=== PATIENT | male | born 1980 | race Caucasian/White ===

== ENCOUNTER → 2017-03-06 | Outpatient (CLI) | payer BC ==
[~2017-03-06] MED LIST: CETI10TA20 PO
[2017-03-06 16:05] VITALS: BP 141/89
--- NOTE | 2017-03-06 16:05 | Urgent Care T Sheet Gen (E) ---
Intake General Temperature (Fahrenheit): 98.5 Pulse: 83 Blood Pressure Systolic: 141 Blood Pressure Diastolic: 89 Respirations: 22 SPO2: 98 Description of Symptoms Patient presents with complaining of feeling "off" since 1:30 this afternoon. Patient was at work where he felt sluggish and noticed chest tightness. No head throbbing or visual changes. Checked his BP at work and it was 156/106 which prompted him to call his . No meds. No history of HTN. Respiratory Constitutional Symptoms: Other (feels "off" ) EENTM: No symptoms reported Respiratory: No symptoms reported Cardiovascular: Chest pain (tightness) All Other Systems Reviewed Remaining Systems: All other systems reviewed with negative findings Physical Exam Physical Exam General Appearance: WD/WN Mild distress Respiratory Exam: Lungs clear Normal breath sounds Cardiovascular Exam: Regular rate, rhythm No murmur Departure Urgent Care Impression Impression: Primary Impression: Chest tightness Departure Departed Disposition: To [facility] ED Condition: Stable Referrals: KAITLIN DELATORRE MD (PCP) Additional Instructions: I have sent the patient to the ER to rule out any cardiac issues Report called Patient is arriving via private vehicle. All questions were answered. End of report . ADELITA AVINA March 06, 2017 16:05
== END ==
LOC: MHUC 15:50
PROVIDERS: ATTEND Physician Assistant
DX: R07.89 Other chest pain (principal)

== ENCOUNTER → 2017-03-06 | Emergency (ER) | payer BC ==
[~2017-03-06] VITALS: Ht 180.3 cm; Wt 118.3 kg
[~2017-03-06] MED LIST changes: +ASPIRIN 81 MG CHEW (LOW-DOSE) PO ONE
[2017-03-06 16:05] VITALS: BP 139/85
[2017-03-06 16:45] LABS: BASOPHILS % (AUTO) 1 % (0-2); EOSINOPHILS # (AUTO) 0.1 10^3uL; EOSINOPHILS % (AUTO) 2 % (0-4); LYMPHOCYTES # (AUTO) 1.4 X10^3; MEAN CORPUSCULAR HEMOGLOBIN 29.5 PG (26.0-34.0); MEAN CORPUSCULAR HGB CONC 34.4 g/dL (31.0-37.0); MEAN CORPUSCULAR VOLUME 86 FL (80-100); MEAN PLATELET VOLUME 10.5 FL (6.0-9.5); MONOCYTES # (AUTO) 0.6 X10^3; MONOCYTES % (AUTO) 10 % (3-11); NEUTROPHILS # (AUTO) 4.2 X10^3; NEUTROPHILS % (AUTO) 65 % (51-67); PLATELET COUNT 203 10^3uL (150-450); WHITE BLOOD COUNT 6.42 10^3uL (4.0-11.0)
[2017-03-06 16:53] LABS: ALBUMIN 4.4 g/dL (3.4-5.0); ALKALINE PHOSPHATASE 75 U/L (38-126); ANION GAP 18.3 MEQ/L (3-15); BUN/CREATININE RATIO 26 (10-20); CALCULATED IONIZED CALCIUM 4.1 mg/dL (3.8-4.6); CREATINE KINASE 122 U/L (55-170); TOTAL PROTEIN 7.5 g/dL (6.4-8.5)
== END ==
LOC: EDUNIT# 16:03 → ED 16:05
DX: R07.89 Other chest pain (principal)
CPT/HCPCS: 36415; 80053; 80061; 82550; 82553; 84484; 85025; 93005; 93010; 99283; 99284